=== PATIENT | female | born 1980 | race Two or more races ===

== ENCOUNTER 2019-06-20 16:49 | Emergency (ER) | payer SELFPAY ==
[~2019-06-20] VITALS: Ht 162.6 cm; Wt 85.7 kg
[2019-06-20 17:00] VITALS: BP 134/92
[2019-06-20] MEDS ORDERED: cefTRIAXone SOD 1,000 MG VL IM ONE (21:00)
[2019-06-20] MEDS ORDERED: IBUPROFEN 800 MG TAB PO ONE (21:00)
[2019-06-20] MEDS ORDERED: LIDOCAINE 1% HCL (LOCAL ANESTH.) INJ 20ML MDV ONE (21:25)
[2019-06-20] MEDS ORDERED: LIDOCAINE 1% HCL (LOCAL ANESTH.) INJ 20ML MDV ID ONE (21:45)
== END 2019-06-20 21:45 | disposition home or self-care (01) ==
LOC: ER 16:49
DX: N61.1 Abscess of the breast and nipple (principal); E11.9 Type 2 diabetes mellitus without complications; I10 Essential (primary) hypertension
CPT/HCPCS: 96372; 99283; J0696; J2001